=== PATIENT | female | born 1965 | race American Indian/Alaskan Native ===

== ENCOUNTER 2017-10-15 09:59 | Day surgery (SDC) | payer OTHER ==
[2017-10-15] MEDS ORDERED: NACL 0.9% 1000 ML 1,000 ML IV SCH (11:00)
--- NOTE | 2017-10-15 12:19 | Anesthesia Day of Surgery ---
Anesthesia Day of Surgery - Day of Surgery Patient Examined: Yes Patient H&P Reviewed: Yes Patient is NPO: Yes
--- NOTE | 2017-10-15 12:19 | Anesthesia Consultation ---
Anesthesia Consult and Med Hx Date of service: 10/15/17 - Airway Anesthetic Teeth Evaluation: Good ROM Head & Neck: Adequate Mental/Hyoid Distance: Adequate Mallampati Class: Class I Intubation Access Assessment: Good - Pulmonary Exam CTA: Yes - Cardiac Exam Cardiac Exam: RRR - Pre-Operative Health Status ASA Pre-Surgery Classification: ASA2 Proposed Anesthetic Plan: MAC - Gastrointestinal Hx Gastroesophageal Reflux Disease: Yes (epigastric pain) - Other Systems Hx Obesity: Yes - Additional Comments Anesthesia Medical History Comments: Informed consent obtained
[2017-10-15] MEDS ORDERED: WATER FOR IRRIG STERILE IR ONE (13:30)
[2017-10-15] MEDS ORDERED: XYLOCAINE MPF 2% ONE (13:30)
[2017-10-15] MEDS ORDERED: DIPRIVAN 10 MG/ML IV ONE ×2 (14:45)
--- NOTE | 2017-10-15 15:15 | Operative Report ---
Operative Report Operative Report: Date: 10/15/2017 Operative Report: Date of procedure: 10/15/2017 Procedure: Esophagogastroduodenoscopy with multiple mucosal biopsies. Attending physician: Zach Gonzalez MD Manager Flight: Zach Gonzalez MD Indication: Patient is a 52 -year-old female who presented with a history of recurrent epigastric pain and right upper quadrant pain. An upper endoscopy is done to assess patient, so that treatment may be directed based on the findings. Consent: Informed consent was obtained after advising the patient and family regarding nature of this procedure, its indications, potential benefits as well as possible complications including but not limited to bleeding perforation and adverse reaction to medication, infection as well as other cardiopulmonary complications. An informed written and verbal consent was then obtained after due opportunity was provided for questions and answers. Monitoring: Patient was monitored continuously with pulse oximetry and electrocardiographic recordings as well as blood pressure recordings. Vital signs remained stable throughout this procedure with no untoward events. Preoperative assessment: Patient was assessed immediately prior to this procedure for capacity to tolerate monitored anesthesia care and moderate sedation as well as general anesthesia. Patient's ASA classification is 2, Mallampati class is 2, Hyomental distance is 3. Instrument: Crunchfish video endoscope Medications: Propofol given intravenously in divided doses. For details please refer to anesthesia records. Description of procedure: Patient was placed in the left lateral decubitus position after achieving sedation, the endoscope was introduced into the esophagus under direct vision. It was then advanced beyond the esophagus into the stomach and then beyond the stomach into the duodenum and to the second portion of the duodenum. It was subsequently withdrawn with careful inspection of all mucosal surfaces with the following findings. Findings: Patient had mild erosive esophagitis involving the distal esophagus.. Patient has an irregular Z line at 38 cm. There was erythema in the gastric antrum. Biopsies of the antrum were obtained for histopathology. The duodenum was normal to second portion. Impression: Mild erosive esophagitis. Irregular Z line. Gastric antral erythema Plan: Continue treatment with proton pump inhibitors. Follow pathology report. Direct additional treatment based on the pathology report. Patient will be observed clinically. Additional recommendations will be made follow-up. We will follow up the results of additional workup including right upper quadrant ultrasound.
--- NOTE | 2017-10-15 15:16 | Discharge Summary ---
Short Stay Discharge Plan Activity: advance as tolerated Weight Bearing Status: Weight Bear as Tolerated Diet: regular Follow up with: RAVIN SINGLETARY MD [Primary Care Provider] - 7 Days
[2017-10-15 15:37] VITALS: BP 136/90
== END 2017-10-15 10:00 | disposition home or self-care (01) ==
LOC: GIO 09:59
PROVIDERS: ATTEND Internal Medicine Gastroenterology
DX: K21.0 Gastro-esophageal reflux disease with esophagitis (principal); K22.8 Other specified diseases of esophagus; E66.9 Obesity, unspecified; Z68.34 Body mass index [BMI] 34.0-34.9, adult; Z88.8 Allergy status to other drugs, medicaments and biological substances; Z91.048 Other nonmedicinal substance allergy status
CPT/HCPCS: 43239; 88305; 88342; J2704

== ENCOUNTER 2018-05-20 12:10 | Day surgery (SDC) | payer OTHER ==
[2018-05-20] MEDS ORDERED: NACL 0.9% 1000 ML 1,000 ML IV SCH (14:00)
--- NOTE | 2018-05-20 15:53 | Anesthesia Day of Surgery ---
Anesthesia Day of Surgery - Day of Surgery Patient Examined: Yes Patient H&P Reviewed: Yes Patient is NPO: Yes Beta Blockers: No Cardiac Clearance: No Pulmonary Clearance: No
--- NOTE | 2018-05-20 15:54 | Anesthesia Consultation ---
Anesthesia Consult and Med Hx Date of service: 05/20/18 - Airway Anesthetic Teeth Evaluation: Good ROM Head & Neck: Adequate Mental/Hyoid Distance: Adequate Mallampati Class: Class III Intubation Access Assessment: Good - Pulmonary Exam CTA: Yes - Cardiac Exam Cardiac Exam: No Murmur - Pre-Operative Health Status ASA Pre-Surgery Classification: ASA3 Proposed Anesthetic Plan: MAC - Pulmonary Hx Smoking: No Hx Asthma: No Hx Respiratory Symptoms: No SOB: No COPD: No Home Oxygen Therapy: No Hx Pneumonia: No Hx Sleep Apnea: No - Cardiovascular System Hx Hypertension: Yes Hx Coronary Artery Disease: No Hx Heart Attack/AMI: No Hx Angina: No Hx Percutaneous Transluminal Coronary Angioplasty (PTCA): No Hx Cardia Arrhythmia: No Hx Pacemaker: No Hx Internal Defibrillator: No Hx Valvular Heart Disease: No Hx Heart Murmur: No Hx Peripheral Vascular Disease: No - Central Nervous System Hx Neuromuscular Disorder: No Hx Seizures: No CVA: No Hx Back Pain: No Hx Psychiatric Problems: No - Gastrointestinal Hx Gastroesophageal Reflux Disease: Yes (epigastric pain) - Endocrine Hx Renal Disease: No Hx End Stage Renal Disease: No Hx Cirrhosis: No Hx Liver Disease: No Hx Insulin Dependent Diabetes: No Hx Non-Insulin Dependent Diabetes: No Hx Thyroid Disease: No Hx Hypothyroidism: No Hx Hyperthyroidism: No - Hematic Hx Anemia: No Hx Sickle Cell Disease: No - Other Systems Hx Alcohol Use: No Hx Substance Use: No Hx Cancer: No Hx Obesity: Yes
[2018-05-20] MEDS ORDERED: DIPRIVAN 10 MG/ML IV ONE ×2 (17:14)
[2018-05-20] MEDS ORDERED: WATER FOR IRRIG STERILE IR ONE (17:19)
--- NOTE | 2018-05-20 17:40 | Discharge Summary ---
Short Stay Discharge Plan Activity: advance as tolerated Weight Bearing Status: Weight Bear as Tolerated Diet: regular Follow up with: RAVIN SINGLETARY MD [Primary Care Provider] - 7 Days
--- NOTE | 2018-05-20 17:40 | Operative Report ---
Operative Report Operative Report: Date of procedure: 05/20/2018 Procedure: Colonoscopy. Attending physician: Zach Gonzalez MD Competitive Athlete: Zach Gonzalez MD Indication: Patient is a 52-year-old female who presents for colorectal cancer screening. A colonoscopy serves to evaluate patient so that treatment may be directed based on the findings. Consent: Informed consent was obtained after advising the patient and family regarding nature of this procedure, its indications, potential benefits as well as possible complications including but not limited to bleeding perforation and adverse reaction to medication, infection as well as other cardiopulmonary complications. An informed written and verbal consent was then obtained after due opportunity was provided for questions and answers. Monitoring: Patient was monitored continuously with pulse oximetry and electrocardiographic recordings as well as blood pressure recordings. Vital signs remained stable throughout this procedure with no untoward events. Preoperative assessment: Patient was assessed immediately prior to this procedure for capacity to tolerate monitored anesthesia care and moderate sedation as well as general anesthesia. Patient's ASA classification is 2, Mallampati class is 2, Hyomental distance is 3. Instrument: [employer] video colonoscope Medications: Propofol given intravenously in divided doses. For details please refer to anesthesia records. Description of procedure: Patient was placed in the left lateral decubitus position after achieving sedation, a digital rectal examination was performed following which the colonoscope was introduced into the anal verge and advanced to the cecum which was identified by the ileocecal valve, the appendiceal orifice, as well as by the cecal strap and direct transillumination. The colonoscope was subsequently withdrawn with careful inspection of all mucosal surfaces. Patient tolerated this procedure well and was subsequently taken to the recovery room. The following findings were noted. Findings: The entirety of the colon to the cecum was normal. On the retroflex view at the anal verge, patient had prominent internal hemorrhoids. Impression: Normal colonoscopy. Prominent Internal hemorrhoids. Plan: High-fiber diet. Prn stool softeners. Repeat colonoscopy in 10 years. Patient would likely benefit from hemorrhoidal band ligation .
[2018-05-20 18:38] VITALS: BP 132/88
== END 2018-05-20 12:11 | disposition home or self-care (01) ==
LOC: GIO 12:10
PROVIDERS: ATTEND Internal Medicine Gastroenterology
DX: K64.8 Other hemorrhoids (principal); K59.00 Constipation, unspecified; K21.9 Gastro-esophageal reflux disease without esophagitis; I10 Essential (primary) hypertension; E66.9 Obesity, unspecified; Z68.36 Body mass index [BMI] 36.0-36.9, adult; Z79.899 Other long term (current) drug therapy; Z88.6 Allergy status to analgesic agent; Z91.09 Other allergy status, other than to drugs and biological substances; Z90.710 Acquired absence of both cervix and uterus
CPT/HCPCS: 45378; J2704; J7030

== ENCOUNTER 2021-12-06 12:28 | Emergency (ER) | payer OTHER ==
[2021-12-06 13:34] LABS: Hematocrit 35.1 % (30.3-42.9); Hemoglobin 11.7 gm/dl (10.1-14.3); Mean Corpuscular HGB Conc 33 % (30-34); Mean Corpuscular Volume 93 fl (79-97); Platelet Count 298 K/mm3 (140-440); Red Blood Count 3.78 M/mm3 (3.65-5.03); Red Cell Distribution Width 12.4 % (13.2-15.2)
--- NOTE | 2021-12-06 13:54 | Emergency Department Report ---
ED Abdominal Pain HPI - General Chief Complaint: Abdominal Pain Stated Complaint: ABD PAIN PUI?: No Time Seen by Provider: 12/06/21 13:36 Source: patient Mode of arrival: Ambulatory Limitations: No Limitations - History of Present Illness Initial Comments: Ms. Gerber is a 56-year-old female that comes to the emergency room with epigastric pain radiating into her esophagus. She states that she has been having this off and on for couple weeks. She is asking for a GI cocktail by name. Patient denies nausea vomiting. She denies diarrhea or constipation. She denies change in bowel habits. She denies fever or chills. Patient denies cough or shortness of breath. Patient denies chest pain Patient is ambulatory, [id number] with normal vital signs on exam MD Complaint: abdominal pain -: Gradual, days(s) Location: epigastric Radiation: none Severity: mild Quality: burning Consistency: intermittent Improves With: eating Associated Symptoms: denies other symptoms. denies: nausea, vomiting, diarrhea, fever, chills, constipation, dysuria, hematemesis, hematochezia, melena, hematuria, anorexia, syncope - Related Data Home Medications Medication Instructions Recorded Confirmed Last Taken Hydrocodone-Acetamn 7.5-325/15 10 mg PO PRN PRN 05/19/18 12/06/21 05/20/18 Estradiol 1 mg PO DAILY 05/20/18 12/06/21 05/19/18 Losartan 12.5 - 50 mg PO DAILY 05/20/18 12/06/21 05/20/18 Previous Rx's Medication Instructions Recorded Last Taken Type Pantoprazole [Protonix] 40 mg PO QDAY #30 tablet 12/06/21 Unknown Rx Allergies Allergy/AdvReac Type Severity Reaction Status Date / Time aspirin Allergy SEVERE Verified 12/06/21 14:46 STOMACH PAIN ED Review of Systems ROS: Stated complaint: ABD PAIN Other details as noted in HPI Comment: All other systems reviewed and negative ED Past Medical Hx - Past Medical History Hx Hypertension: Yes Hx Heart Attack/AMI: No Hx Liver Disease: No Hx Renal Disease: No Hx Sickle Cell Disease: No Hx Arthritis: Yes Hx Seizures: No Hx Asthma: No Hx COPD: No Additional medical history: Patient is in a chronic pain program for her back - Surgical History Past Surgical History?: No Hx Pacemaker: No Hx Internal Defibrillator: No - Family History Family history: no significant - Social History Smoking Status: Never Smoker - Medications Home Medications: Home Medications Medication Instructions Recorded Confirmed Last Taken Type Hydrocodone-Acetamn 7.5-325/15 10 mg PO PRN PRN 05/19/18 12/06/21 05/20/18 History Estradiol 1 mg PO DAILY 05/20/18 12/06/21 05/19/18 History Losartan 12.5 - 50 mg PO DAILY 05/20/18 12/06/21 05/20/18 History Pantoprazole [Protonix] 40 mg PO QDAY #30 tablet 12/06/21 Unknown Rx ED Physical Exam - General Limitations: No Limitations General appearance: alert, in no apparent distress - Head Head exam: Present: atraumatic, normocephalic - Eye Eye exam: Present: normal appearance - ENT ENT exam: Present: mucous membranes moist - Neck Neck exam: Present: normal inspection - Respiratory Respiratory exam: Present: normal lung sounds bilaterally. Absent: respiratory distress - Cardiovascular Cardiovascular Exam: Present: regular rate, normal rhythm. Absent: systolic murmur, diastolic murmur, rubs, gallop - GI/Abdominal GI/Abdominal exam: Present: soft, normal bowel sounds - Extremities Exam Extremities exam: Present: normal inspection - Back Exam Back exam: Present: normal inspection - Neurological Exam Neurological exam: Present: alert, oriented X3 - Psychiatric Psychiatric exam: Present: normal affect, normal mood - Skin Skin exam: Present: warm, dry, intact, normal color. Absent: rash ED Course Vital Signs 12/06/21 14:40 Temperature 98.7 F Pulse Rate 81 Respiratory 20 Rate Blood Pressure 124/79 [Left] O2 Sat by Pulse 100 Oximetry ED Medical Decision Making - Lab Data Result diagrams: 12/06/21 13:19 12/06/21 13:19 - Medical Decision Making GI cocktail given with relief Lab Results 12/06/21 12/06/21 12/06/21 Range/Units 13:19 13:19 Unknown WBC 5.9 (4.5-11.0) K/mm3 RBC 3.78 (3.65-5.03) M/mm3 Hgb 11.7 (10.1-14.3) gm/dl Hct 35.1 (30.3-42.9) % MCV 93 (79-97) fl MCH 31 (28-32) pg MCHC 33 (30-34) % RDW 12.4 L (13.2-15.2) % Plt Count 298 (140-440) K/mm3 Sodium 141 (137-145) mmol/L Potassium 4.9 (3.6-5.0) mmol/L Chloride 102.3 (98-107) mmol/L Carbon Dioxide 30 (22-30) mmol/L Anion Gap 14 mmol/L BUN 15 (7-17) mg/dL Creatinine 0.8 (0.6-1.2) mg/dL Estimated GFR > 60 ml/min BUN/Creatinine Ratio 19 % Glucose 96 (65-100) mg/dL Calcium 10.1 (8.4-10.2) mg/dL Total Bilirubin 0.20 (0.1-1.2) mg/dL AST 20 (5-40) units/L ALT 17 (7-56) units/L Alkaline Phosphatase 87 (35-129) units/L Total Protein 7.0 (6.3-8.2) g/dL Albumin 4.6 (3.9-5) g/dL Albumin/Globulin Ratio 1.9 % Lipase 28 (13-60) units/L Urine Color Colorless (Yellow) Urine Turbidity Clear (Clear) Urine pH 7.0 (5.0-7.0) Ur Specific [place] 1.004 (1.003-1.030) Urine Protein <15 mg/dl (Negative) mg/dL Urine Glucose (UA) Neg (Negative) mg/dL Urine Ketones Neg (Negative) mg/dL Urine Blood Neg (Negative) Urine Nitrite Neg (Negative) Urine Bilirubin Neg (Negative) Urine Urobilinogen < 2.0 (<2.0) mg/dL Ur Leukocyte Esterase Neg (Negative) Urine WBC (Auto) 1.0 (0.0-6.0) /HPF Urine RBC (Auto) < 1.0 (0.0-6.0) /HPF U Epithel Cells (Auto) 1.0 (0-13.0) /HPF Vital Signs 12/06/21 14:40 Temperature 98.7 F Pulse Rate 81 Respiratory 20 Rate Blood Pressure 124/79 [Left] O2 Sat by Pulse 100 Oximetry Labs noted. Lipase normal. WBC normal. Urinalysis normal. GI cocktail relieved pain. Abdominal exam is benign. Patient being discharged home with discharge plan of care including diet, activity, medications and follow-up. She verbalizes understanding of discharge plan of care - Differential Diagnosis Acute on chronic GERD Critical care attestation.: If time is entered above; I have spent that time in minutes in the direct care of this critically ill patient, excluding procedure time. ED Disposition Clinical Impression: GERD (gastroesophageal reflux disease) Disposition: 01 HOME / SELF CARE / HOMELESS Is pt being admited?: No Does the pt Need Aspirin: No Condition: Stable Instructions: Gastroesophageal Reflux Disease, Adult, [id number], Abdominal Pain (ED) Prescriptions: Pantoprazole [Protonix] 40 mg PO QDAY #30 tablet Referrals: RAVIN SINGLETARY MD [Primary Care Provider] - 3-5 Days CIPRIANO POWELL MD [Staff Physician] - 3-5 Days VERONICA CLIFTON MD [Staff Physician] - 3-5 Days Forms: Work/School Release Form(ED) Time of Disposition: 14:48
[2021-12-06 13:58] LABS: Alanine Aminotransferase 17 units/L (7-56); Albumin 4.6 g/dL (3.9-5); BUN/Creatinine Ratio 19; Blood Urea Nitrogen 15 mg/dL (7-17); Calcium 10.1 mg/dL (8.4-10.2); Hemolysis Index 23
[2021-12-06 13:58] LABS: Bilirubin,Urine NEG (Negative); Blood,Urine NEG (Negative); Color,Urine Colorless (Yellow); Protein,Urine <15 mg/dL mg/dL (Negative); RBC,Urine < 1.0 /HPF (0.0-6.0); Urobilinogen,Urine < 2.0 mg/dL (<2.0)
[2021-12-06] MEDS ORDERED: FAMOTIDINE 20 MG TAB PO ONE (14:09)
[2021-12-06] MEDS ORDERED: ALUM-MAG HYDROXIDE-SIMETHICONE 200-200-20MG/5ML ORAL LIQD 30 ML PO ONE (14:09)
[2021-12-06] MEDS ORDERED: LIDOCAINE VISCOUS 2% 15 ML ORAL LIQD PO ONE (14:09)
[2021-12-06 14:42] VITALS: BP 124/79
== END 2021-12-07 08:06 | disposition home or self-care (01) ==
LOC: ED 12:28
DX: K21.9 Gastro-esophageal reflux disease without esophagitis (principal); I10 Essential (primary) hypertension; M19.90 Unspecified osteoarthritis, unspecified site; Z88.6 Allergy status to analgesic agent; Z79.899 Other long term (current) drug therapy
CPT/HCPCS: 36415; 80053; 81001; 83690; 85027; 99283